=== PATIENT | female | born 1965 | race Caucasian/White ===

== ENCOUNTER → 2016-07-12 14:54 | Outpatient (CLI) | payer SELFPAY ==
[2009-12-02 08:27] VITALS: BMI 20.4
== END | disposition home or self-care (01) ==
LOC: D.LABREF 14:54
DX: R60.9 Edema, unspecified (principal)

== ENCOUNTER → 2016-09-28 07:38 | Outpatient (CLI) | payer OTHER ==
[2009-12-02 08:27] VITALS: BMI 20.4
== END | disposition home or self-care (01) ==
LOC: D.RT 06-23 11:00 → D.LAB 06-23 12:15 → D.RT 09-01 10:00
DX: J45.909 Unspecified asthma, uncomplicated (principal)